=== PATIENT | female | born 1940 | race Caucasian/White ===

== ENCOUNTER → 2023-12-15 07:46 | Outpatient (REF) | payer MEDICARE, SELFPAY | LOC: WDC 07:46 | PROVIDERS: ATTENDING PHYSICIAN Internal Medicine | DX: Z12.31 Encounter for screening mammogram for malignant neoplasm of breast (principal); M81.0 Age-related osteoporosis without current pathological fracture | CPT/HCPCS: 77063; 77067; 77080 ==

== ENCOUNTER → 2023-12-16 08:04 | Outpatient (REF) | payer MEDICARE, SELFPAY | LOC: RAD 08:04 | PROVIDERS: ATTENDING PHYSICIAN Internal Medicine Gastroenterology; FAMILY PHYSICIAN Internal Medicine | DX: R14.0 Abdominal distension (gaseous) (principal) | CPT/HCPCS: 78264; A9541 ==

== ENCOUNTER 2024-06-04 19:46 | Emergency (ER) | payer MEDICARE, SELFPAY ==
[2024-06-04 19:49] VITALS: BP 172/90
[2024-06-04 20:32] VITALS: BP 201/92
[2024-06-04 20:44] VITALS: BP 177/73; BMI 19.4
[2024-06-04 20:47] LABS: % Basophils 0.7 % (0-2); % Eosinophils 4.3 % (0-6); % Immature Granulocytes 0.2 % (0-0.5); % Neutrophils 54.8 % (42.2-75.2); Absolute Eosinophils 0.2 10^3/uL (0-0.7); Absolute Monocytes 0.7 10^3/uL (0.1-0.6); Absolute Neutrophils 2.3 10^3/uL (1.4-6.5); Mean Corp Hgb Conc. 35.1 g/dL (33.0-37.0); Mean Corpuscular Hgb 29.1 pg (27.0-31.0); Mean Corpuscular Volume 82.8 fL (81.0-99.0); Mean Platelet Volume 9.1 fL (7.4-10.4); Nucleated Red Blood Cells % 0 %; Platelet Count 176 10^3/uL (130-400); Red Blood Cell Count 4.47 10^6/uL (4.20-5.40); Red Cell Dist. Width 12.8 % (11.5-14.5); White Blood Cell Count 4.2 10^3/uL (4.8-10.8)
--- NOTE | 2024-06-04 20:53 | ED.GENMED ---
History of Present Illness
General
Chief Complaint: Chest Pain
Source: patient
Exam Limitations: none
Time Seen by Provider: 06/04/24 20:27
History of Present Illness
History of Present Illness:
This is a 84 year old female that comes in with c/o chest discomfort. States that in October she went to see her PCP and she was put on medication for erosive gastritis. State that in November she was no better so she went to the GI specialist.
States that she was given Famotidine and she got worse as this caused Tenonitis. State that she has had a sick stomach ever since. States that the past 2 weeks she has a sore taste in her mouth and sore stomach. States that she has an appointment to
see the GI Specialist next week. Then 3-4 days ago she started with pain in the left upper chest. States that this only last seconds. States that this happened 1-2 times throughout the day and it did not matter if she was active or laying down.Today
she was laying down and she got left chest pain more on the inner breast and this happened 2 times. States that it was every 50-60 min and last seconds so she thought she better come in . Denies any fever, chills, SOB, abd pain, nausea, vomiting,
diarrhea, headache, dizziness, urinary burning.
Past History
Past History
ED Past Medical History: GERD (Gastritis), Hypercholesterolemia, Other (Migraines, sciatica, back pain, PE, Hep A, B and C, Lyme, Amniatic embolism, Erosive gastritis ) and Other (Hepatitis C from blood transfusion )
ED Past Surgical History: None, Orthopedic (Surgery for Fracture leg and elbow, ), Tonsilectomy and Other (Breast cyst removed)
Social History
Tobacco: Non-smoker
Alcohol: None
Personal:
Living: with family
Family History
Family History: Hypertension
Review of Systems
Review of Systems
All Other Systems: ROS reviewed and negative except as documented in HPI and ROS
Constitutional: Reports no symptoms; Denies fever or chills
EENT: Reports no symptoms
Respiratory: Denies cough or trouble breathing
Cardiac: Reports chest pain
ABD/GI: Reports no symptoms; Denies abdominal pain, nausea, vomiting or diarrhea
: Reports no symptoms; Denies dysuria, frequency or urgency
Musculoskeletal: Reports no symptoms
Skin: Reports no symptoms
Neurological: Reports no symptoms; Denies dizzy or headache
Psychiatric: Reports no symptoms
Phy Exam
General Physical Exam
General Presentation: no apparent distress
General age: appears stated age
General Skin: warm and dry
General Habitus: elderly
General Mental: alert
General Hydration: appears well hydrated
ENT Exam
ENT Exam: TM's normal, pharynx normal and neck supple
Eye Exam
Eye Exam: EOMI
Cardiovascular Exam
Cardiovascular Exam: regular rate/rhythm, no edema, no murmur and normal peripheral pulses
Pulmonary Exam
Pulmonary Exam: lungs clear, no respiratory distress, no rales, chest non tender, no crackles, no rhonchi, no wheezing and no cough
Gastrointestinal Exam
Gastrointestinal Exam: normal bowel sounds, non tender, soft, no organomegaly, no pulsatile mass and non distended
Musculoskeletal Exam
Musculoskeletal Exam: full ROM and no edema
Skin Exam
Skin Exam: normal color, warm/dry, no rash and no petechia
Psychiatric Exam
Psychiatric Exam: normal mood/affect
Scores
Heart Score for Chest Pain Patients
STEMI patient?: No
History: Slightly or Non-Suspicious
ECG: Normal
Age: >/= 65 years
Risk Factors: No Risk Factors
Troponin: </= Normal Limit
Heart Score for Chest Pain Patients: 2
Heart Score Risk: 2.5% MACE over next 6 weeks
Course
Orders/Labs/Results
Orders:
Orders
06/04/24 19:47
ECG [Electrocardiogram (*1)] Urgent
Reason for Study: Chest Pain
06/04/24 19:48
EKG- Treatment ONCE
06/04/24 20:38
Complete Blood Count/With Diff Urgent
Comprehensive Metabolic Panel Urgent
Troponin I Urgent
06/04/24 20:52
Pantoprazole [Protonix IV] 40 mg IV NOW STA
Sucralfate Suspension [Carafate Suspension] 1 gm PO NOW STA
CR Chest - 2 Views Urgent
Comment:
Reason For Exam: cHEST PAIN
06/04/24 21:42
EKG- Treatment ONCE
06/04/24 23:40
Electrocardiogram (*1) Urgent
Reason for Study: Chest Pain
Other Reason for Exam: Repeat with Troponin
06/04/24 23:51
Troponin I Urgent
06/05/24 00:32
D-Dimer Urgent
Abnormal Lab Results
06/04/24
20:38
WBC 4.2 L 10^3/uL
(4.8-10.8)
Absolute Lymphs (auto) 1.0 L 10^3/uL
(1.2-3.4)
Absolute Monos (auto) 0.7 H 10^3/uL
(0.1-0.6)
Monocytes % 17.0 H %
(1.7-9.3)
Carbon Dioxide 31 H mmol/L
(22-30)
AST 43 H U/L
(14-36)
06/04/24 20:38
06/04/24 20:38
WBC very slightly low. AST elevation. Troponin <0.012.
Second Troponin ,0.012, D-dimer o.44
Vital Signs
Initial and Last Documented VS:
Initial Vital Signs
Temp Pulse Resp BP Pulse Ox
98.2 F 85 16 172/90 99
06/04/24 19:49 06/04/24 19:49 06/04/24 19:49 06/04/24 19:49 06/04/24 19:49
Last Documented Vital Signs
Temp Pulse Resp BP Pulse Ox
98.3 F 59 6 163/71 97
06/04/24 23:54 06/05/24 01:15 06/05/24 01:15 06/05/24 01:00 06/05/24 01:15
MDM/Problems Addressed
Differential Diagnosis Includes:
coronary syndrome. GERD
MDM/Problems Addressed:
This is a 84 year old female that comes in with c/o chest pain. State that she had left upper chest discomfort 3-4 days ago and this only lasted seconds. Then today she was laying down and the pain was more on the left internal breast area. State
that this has happened about every 50-60min and last seconds.
Will get labs, chest x-ray.
Back into see patient. Explained that her both Troponin are normal and her D-dimer is negative. Chest x-ray is negative. Will place patient on the Cardiology hot line for further evaluation. Patient to return with increased or changing pain.
Chronic conditions affecting care:
erosive gastritis,
Acute Exacerbation and/or Progression of Chronic Illness:
Erosive gastritis
*Pulse Oximetry
Patient hypoxic: no
*EKG
Interpreted by ED Provider?: Yes
Heart Rate: 72
Rate: normal
Rhythm: sinus
[place]: left axis deviation
Interval: normal interval
QRS Pattern: normal QRS
Ischemia: T-wave inversion (aVR, V1, V2, with nonspecific ST changes in II, V4, V5, V6)
*Deputy Insurance Commissioner Interpretation
Rate: normal
Heart Rate: 80
*Critical Care Note
Total Time (30-74mins, 75-104mins- exclusive of procedures): Not Applicable
ED Attending Note
-
Portions of this chart may have been created with voice recognition software.� Occasional wrong word or��sound alike� substitutions may have occurred due to the inherent limitations of voice recognition software.
Discharge Plan
Departure
Patient Disposition: Home (Routine Discharge)
Date of Disposition: 06/05/24
Time of Disposition: 01:34
Patient with high blood pressure during this ER visit?: Yes
Condition: Good
Covid-19: Not Applicable
Discharge Problem:
Chest pain
Instructions: Chest Pain DCA Follow Up, BLOOD PRESSURE
Prescriptions:
No Action
calcium carbonate [Calcium 600] 600 MG tablet
2,400 mg PO DAILY
avxxwqpg-ukh-EP-lycopen-lutein [Centrum Silver] 1 EACH tablet
1 ea PO DAILY
diltiazem HCl 120 MG capsule,extended release 24hr
120 mg PO DAILY
Atorvastatin
5 mg PO DAILY
aspirin 81 MG tablet,delayed release (DR/EC)
81 mg PO DAILY
ibuprofen 400 MG tablet
400 mg PO Q6 PRN (Reason: pain) Qty: 14 0RF
methylprednisolone [Medrol (Magno)] 4 MG tablets,dose pack
4 tab PO . DIRECT Qty: 1 0RF
ciprofloxacin-hydrocortisone [Cipro HC] 10 ML drops,suspension
4 drops OT BID Qty: 1 0RF
acetaminophen-codeine 1 TABLET tablet
1 tab PO Q6HPRN PRN (Reason: pain ) Qty: 12 0RF
sulfamethoxazole-trimethoprim 1 TABLET tablet
1 tab PO BID Qty: 14 0RF
Referrals:
Ira Gee MD [Family Provider] -
Natalio Zaragoza MD [Active] - Follow up in 2-3 days
Activity Restrictions/Additional Instructions:
As discussed, your blood work shows that both Troponin are normal. Your D-dimer is negative and your chest x-ray is normal. You have been place on the cardiology hot line. This means that the next business day you will receive a call from the
Division [employer] office for further evaluation. IF YOU HAVE INCREASED OR CHANGING PAIN, SHORTNESS OF BREATH, OR YOU HAVE ANY OTHER CONCERNS PLEASE RETURN TO THE EMERGENCY ROOM.
Interventions
Interventions:
*Risk Screen - Suicide Last Done: 06/04/24 20:45
*General Assessment Last Done: 06/04/24 20:39
*Neglect/Abuse Screening Last Done: 06/04/24 20:45
ED- Fall Risk Assessment Last Done: 06/04/24 20:40
*ED COVID-19 Vaccine History Last Done: 06/04/24 20:45
ED- Cardiac Assessment Last Done: 06/04/24 23:55
Discharge Date and Time
Print Language: [place]
[2024-06-04 20:59] LABS: ALT (SGPT) 25 U/L (0-35); AST (SGOT) 43 U/L (14-36); Albumin 4.4 g/dl (3.5-5.0); Alkaline Phosphatase 67 U/L (38-126); Blood Urea Nitrogen 13 mg/dl (7-17); Calcium 9.5 mg/dl (8.4-10.2); Carbon Dioxide 31 mmol/L (22-30); Chloride 102 mmol/L (98-107); Estimated Creatinine Clearance 47 ml/min; Glucose 80 mg/dl (70-99); Potassium 3.9 mmol/L (3.5-5.1); Sodium 139 mmol/L (135-145); Total Bilirubin 0.5 mg/dl (0.2-1.3); Total Protein 6.8 g/dl (6.3-8.2); eGFR > 60.00
[2024-06-04 21:10] LABS: Troponin I < 0.012 ng/ml
[2024-06-04] MEDS: PROTONIX IV 40 MG IV (21:12)
[2024-06-04] MEDS: CARAFATE SUSPENSION 1 GM PO (21:13)
[2024-06-04 21:28] VITALS: BP 144/63
[2024-06-04 22:00] VITALS: BP 148/71
[2024-06-04 23:49] VITALS: BP 171/80
[2024-06-05] VITALS: BP 164/83
[2024-06-05 00:19] LABS: Troponin I < 0.012 ng/ml
[2024-06-05 01:00] VITALS: BP 163/71
[2024-06-05 01:29] LABS: D-Dimer 0.44 ug/mlFEU (0.00-0.50)
[2024-06-05 01:32] VITALS: BP 161/70
[2024-06-05 01:38] VITALS: BP 161/70
== END 2024-06-05 01:39 | disposition home or self-care (01) ==
LOC: EMR 19:46
PROVIDERS: Clinical Nurse Specialist Family Health; Emergency Medicine; EMERGENCY PHYSICIAN Emergency Medicine; FAMILY PHYSICIAN Internal Medicine
DX: R07.89 Other chest pain (principal); K21.9 Gastro-esophageal reflux disease without esophagitis; E78.00 Pure hypercholesterolemia, unspecified
CPT/HCPCS: 99283; 96374; 71046; 80053; 84484; 85025; 85379; 93005

== ENCOUNTER → 2025-01-10 10:58 | Outpatient (REF) | payer MEDICARE, SELFPAY | LOC: DHSLP 10:58 | PROVIDERS: ATTENDING PHYSICIAN Internal Medicine Critical Care Medicine; FAMILY PHYSICIAN Family Medicine | DX: G47.00 Insomnia, unspecified (principal); R06.83 Snoring | CPT/HCPCS: 95810 ==

== ENCOUNTER → 2025-01-16 08:17 | Outpatient (REF) | payer MEDICARE, SELFPAY | LOC: WDC 08:17 | PROVIDERS: ATTENDING PHYSICIAN Obstetrics & Gynecology; FAMILY PHYSICIAN Family Medicine | DX: Z12.31 Encounter for screening mammogram for malignant neoplasm of breast (principal) | CPT/HCPCS: 77063; 77067 ==

== ENCOUNTER → 2025-01-26 09:37 | Outpatient (REF) | payer MEDICARE, SELFPAY | LOC: WDC 09:37 | PROVIDERS: ATTENDING PHYSICIAN Obstetrics & Gynecology; FAMILY PHYSICIAN Family Medicine | DX: R92.8 Other abnormal and inconclusive findings on diagnostic imaging of breast (principal) | CPT/HCPCS: 76642 ==

== ENCOUNTER 2025-05-22 06:58 | Emergency (ER) | payer MEDICARE, SELFPAY ==
[2025-05-22 07:15] VITALS: BP 133/71
[2025-05-22 07:37] LABS: Hematocrit 38.5 % (37.0-47.0); Hemoglobin 13.1 g/dL (12.0-16.0); Mean Corp Hgb Conc. 34.0 g/dL (33.0-37.0); Mean Corpuscular Volume 84.4 fL (81.0-99.0); Nucleated Red Blood Cells % 0 %; Platelet Count 204 10^3/uL (130-400); Red Cell Dist. Width 13.0 % (11.5-14.5)
[2025-05-22 07:41] LABS: Urine Character Clear (Clear)
[2025-05-22 07:51] LABS: ALT (SGPT) 21 U/L (0-35); AST (SGOT) 39 U/L (14-36); Albumin 4.4 g/dl (3.5-5.0); Alkaline Phosphatase 57 U/L (38-126); Blood Urea Nitrogen 10 mg/dl (7-17); Calcium 9.4 mg/dl (8.4-10.2); Carbon Dioxide 28 mmol/L (22-30); Chloride 103 mmol/L (98-107); Glucose 96 mg/dl (70-99); Lipase 100 U/L (23-300); Potassium 4.0 mmol/L (3.5-5.1); Sodium 136 mmol/L (135-145); Total Protein 6.8 g/dl (6.3-8.2); eGFR > 60.00
--- NOTE | 2025-05-22 10:00 | EDRN ---
Dr. Ovalles in to see pt at this time.
--- NOTE | 2025-05-22 10:10 | ED.GENMED ---
History of Present Illness
General
Chief Complaint: Abdominal Pain
Time Seen by Provider: 05/22/25 09:46
History of Present Illness
History of Present Illness:
85-year-old female with history of hyperlipidemia presenting for concern of constipation. Patient reports that last bowel movement was yesterday morning. She does struggle with constipation and reports that she has been having increased pain when
trying to defecate and pass flatus. Notes pain particularly to her lower abdomen which radiates to her back. Denies fever. Denies any history of abdominal surgeries. She denies chest pain or difficulty breathing. Denies fever. She has not on
any stool softeners. She denies additional acute medical complaints
Past History
Past History
ED Past Medical History: GERD (Gastritis), Hypercholesterolemia, Other (Migraines, sciatica, back pain, PE, Hep A, B and C, Lyme, Amniatic embolism, Erosive gastritis ) and Other (Hepatitis C from blood transfusion )
ED Past Surgical History: None, Orthopedic (Surgery for Fracture leg and elbow, ), Tonsilectomy and Other (Breast cyst removed)
Social History
Tobacco: Non-smoker
Alcohol: None
Personal:
Living: with family
Family History
Family History: Hypertension
Phy Exam
Physical Exam
Physical Exam:
General: Well-appearing, no clinical signs of dehydration, nontoxic and in no acute distress
HEENT: protecting airway
Neck: appears supple
CV: Normal heart rate, regular rhythm
Resp: No accessory muscle use, no increased work of breathing, lungs clear to auscultation bilaterally
Abd: Soft and non-distended, mild tenderness to the left lower quadrant and suprapubic abdomen
Extremities: No deformities, no swelling
Neuro: alert, no focal neurologic deficit
: deferred
Rectal: deferred
Psych: Normal affect
Skin: Intact
Course
Orders/Labs/Results
Orders:
Orders
05/22/25 07:27
Complete Blood Count/With Diff Urgent
Comprehensive Metabolic Panel Urgent
Lipase Urgent
Urinalysis Reflex To Culture Urgent
Date Specimen was Collected: 05/22/25
Time Specimen was Collected: 07:18
05/22/25 10:05
CT Abd/pelvis W Iv Cont Urgent
Comment:
Reason For Exam: LLQ and suprapubic pain
Ketorolac [Toradol] 15 mg IV NOW STA
05/22/25 13:36
Amoxicillin 875 mg/Clav 125 mg [Augmentin 875 mg/125 mg] 1 tablet PO NOW STA
Abnormal Lab Results
05/22/25
07:27
Absolute Neuts (auto) 6.9 H 10^3/uL
(1.4-6.5)
Absolute Lymphs (auto) 0.7 L 10^3/uL
(1.2-3.4)
Absolute Monos (auto) 1.0 H 10^3/uL
(0.1-0.6)
Neutrophils % 78.3 H %
(42.2-75.2)
Lymphocytes % 7.7 L %
(20.5-51.1)
Monocytes % 11.3 H %
(1.7-9.3)
AST 39 H U/L
(14-36)
05/22/25 07:27
05/22/25 07:27
Vital Signs
Initial and Last Documented VS:
Initial Vital Signs
Temp Pulse Resp BP Pulse Ox
98.5 F 86 16 133/71 97
05/22/25 07:15 05/22/25 07:15 05/22/25 07:15 05/22/25 07:15 05/22/25 07:15
Last Documented Vital Signs
Temp Pulse Resp BP Pulse Ox
98.5 F 61 16 130/59 96
05/22/25 07:15 05/22/25 12:15 05/22/25 12:15 05/22/25 12:15 05/22/25 12:15
MDM/Problems Addressed
MDM/Problems Addressed:
85-year-old female with history of hyperlipidemia presenting for constipation and abdominal pain. Vital signs on arrival are normal.
On exam patient is resting comfortably in bed, no acute distress. On abdominal exam, mild tenderness in the lower abdomen without rebound or guarding. Suspect constipation as etiology of symptoms. Lower suspicion for obstructive pathology.
However, does have more prominent focal tenderness to the left lower quadrant. Diverticulitis is a consideration. Patient does note history of diverticulosis. Laboratory analysis obtained prior to my assessment, no acute abnormality. No
leukocytosis. Plan for CT abdomen and pelvis to rule out acute pathology.
13:30 -CT shows evidence of diverticulitis, consistent with exam. No complicating features. Patient would prefer to go home with antibiotics. Will start patient on Augmentin. Strict return precautions communicated to patient who verbalized
understanding
*Pulse Oximetry
SaO2: 97
Oxygen Mode of Delivery: Room air
Patient hypoxic: no
*Critical Care Note
Total Time (30-74mins, 75-104mins- exclusive of procedures): Not Applicable
ED Attending Note
-
Portions of this chart may have been created with voice recognition software.� Occasional wrong word or��sound alike� substitutions may have occurred due to the inherent limitations of voice recognition software.
Discharge Plan
Departure
Prescriptions:
No Action
calcium carbonate [Calcium 600] 600 MG tablet
2,400 mg PO DAILY
llzmumym-cgf-VD-lycopen-lutein [Centrum Silver] 1 EACH tablet
1 ea PO DAILY
diltiazem HCl 120 MG capsule,extended release 24hr
120 mg PO DAILY
Atorvastatin
5 mg PO DAILY
aspirin 81 MG tablet,delayed release (DR/EC)
81 mg PO DAILY
ibuprofen 400 MG tablet
400 mg PO Q6 PRN (Reason: pain) Qty: 14 0RF
methylprednisolone [Medrol (Magno)] 4 MG tablets,dose pack
4 tab PO . DIRECT Qty: 1 0RF
ciprofloxacin-hydrocortisone [Cipro HC] 10 ML drops,suspension
4 drops OT BID Qty: 1 0RF
acetaminophen-codeine 1 TABLET tablet
1 tab PO Q6HPRN PRN (Reason: pain ) Qty: 12 0RF
sulfamethoxazole-trimethoprim 1 TABLET tablet
1 tab PO BID Qty: 14 0RF
Referrals:
Ira Joshi MD [Family Provider, Family Practice]
Interventions
Interventions:
*Risk Screen - Suicide Last Done: 05/22/25 07:15
*General Assessment Last Done: 05/22/25 10:14
*Neglect/Abuse Screening Last Done: 05/22/25 07:15
*ED- Fall Risk Assessment Last Done: 05/22/25 10:14
*ED COVID-19 Vaccine History Last Done: 05/22/25 10:14
ET-Ilxemp-Nwtiyjqyua Assessment Last Done: 05/22/25 10:15
Discharge Date and Time
Print Language: [place] CITIZEN
--- NOTE | 2025-05-22 10:12 | EDRN ---
Pt arrives to ER for pain across lower abd and across lower back. Pain at this time is 10/10. Pain started 15:00 yesterday.Pt also having nausea, feeling cold. Last BM yesterday am or day before, reported as normal.
[2025-05-22 10:14] VITALS: BMI 18.4
[2025-05-22 10:15] VITALS: BP 165/70
[2025-05-22] MEDS: TORADOL 15 MG IV (10:23)
[2025-05-22 11:00] VITALS: BP 142/61
--- NOTE | 2025-05-22 11:43 | EDRN ---
Pt arrived to ED after vomiting coffee ground like emesis last night. Pt states she has R lower abd pain w/ spasms going across her back for past couple of weeks.
[2025-05-22 12:15] VITALS: BP 130/59
[2025-05-22 13:35] VITALS: BP 143/69
[2025-05-22] MEDS: AUGMENTIN 875 MG/125 MG 1 TABLET PO (13:47)
== END 2025-05-22 13:55 | disposition home or self-care (01) ==
LOC: EMR 06:58
PROVIDERS: Emergency Medicine; EMERGENCY PHYSICIAN Student in an Organized Health Care Education/Training Program; FAMILY PHYSICIAN Family Medicine
DX: K57.92 Diverticulitis of intestine, part unspecified, without perforation or abscess without bleeding (principal); E78.00 Pure hypercholesterolemia, unspecified; K59.00 Constipation, unspecified; K21.9 Gastro-esophageal reflux disease without esophagitis; Z82.49 Family history of ischemic heart disease and other diseases of the circulatory system; Z87.19 Personal history of other diseases of the digestive system
CPT/HCPCS: 99284; 74177; 80053; 81003; 83690; 85025; Q9967

== ENCOUNTER → 2025-07-17 14:07 | Outpatient (REF) | payer MEDICARE, SELFPAY | LOC: RAD 14:07 | PROVIDERS: ATTENDING PHYSICIAN Family Medicine | DX: J20.9 Acute bronchitis, unspecified (principal) | CPT/HCPCS: 71046 ==

== ENCOUNTER → 2025-07-30 13:59 | Outpatient (REF) | payer MEDICARE, SELFPAY | LOC: WDC 13:59 | PROVIDERS: ATTENDING PHYSICIAN Obstetrics & Gynecology; FAMILY PHYSICIAN Family Medicine | DX: R92.8 Other abnormal and inconclusive findings on diagnostic imaging of breast (principal) | CPT/HCPCS: 76642 ==

== ENCOUNTER 2025-09-24 10:55 | Emergency (ER) | payer MEDICARE, SELFPAY ==
[2025-09-24 10:58] VITALS: BP 139/71
[2025-09-24 12:20] VITALS: BMI 22.4
[2025-09-24 12:28] LABS: Hematocrit 40.1 % (37.0-47.0); Hemoglobin 13.5 g/dL (12.0-16.0); Mean Corp Hgb Conc. 33.7 g/dL (33.0-37.0); Mean Corpuscular Volume 84.6 fL (81.0-99.0); Nucleated Red Blood Cells % 0 %; Platelet Count 179 10^3/uL (130-400); Red Cell Dist. Width 13.2 % (11.5-14.5)
[2025-09-24 12:36] LABS: Urine Character Clear (Clear)
[2025-09-24 12:50] LABS: ALT (SGPT) 20 U/L (0-35); AST (SGOT) 37 U/L (14-36); Albumin 4.4 g/dl (3.5-5.0); Alkaline Phosphatase 61 U/L (38-126); Blood Urea Nitrogen 10 mg/dl (7-17); Calcium 9.3 mg/dl (8.4-10.2); Carbon Dioxide 29 mmol/L (22-30); Chloride 96 mmol/L (98-107); Estimated Creatinine Clearance 39 ml/min; Glucose 79 mg/dl (70-99); Lipase 137 U/L (23-300); Potassium 3.9 mmol/L (3.5-5.1); Sodium 131 mmol/L (135-145); Total Protein 6.9 g/dl (6.3-8.2); eGFR > 60.00
--- NOTE | 2025-09-24 13:24 | ED.GENMED ---
History of Present Illness
General
Chief Complaint: Abdominal Pain
Source: patient
Time Seen by Provider: 09/24/25 13:01
History of Present Illness
History of Present Illness:
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
Wednesday described to be waxing and waning in intensity, mainly periumbilical but overall generalized, nonradiating, no exacerbating or alleviating factors and without any other symptoms. Patient went to urgent care but did not have any testing did,
was recommended that if her symptoms worsen she might need to go to the ER for further imaging. Patient is without any fevers. She does note that for the last 24 hours she has been trying more of a liquid based diet.
Past History
Past History
ED Past Medical History: GERD (Gastritis), Hypercholesterolemia, Other (Migraines, sciatica, back pain, PE, Hep A, B and C, Lyme, Amniatic embolism, Erosive gastritis ) and Other (Hepatitis C from blood transfusion )
ED Past Surgical History: Orthopedic (Surgery for Fracture leg and elbow, ), Tonsilectomy and Other (Breast cyst removed)
Social History
Tobacco: Non-smoker
Alcohol: None
Drug: None
Personal:
Living: with family
Family History
Family History: Hypertension
Review of Systems
Review of Systems
All Other Systems: ROS reviewed and negative except as documented in HPI and ROS
Phy Exam
Physical Exam
Physical Exam:
GENERAL: Alert , in no apparent distress
EYE: clear conjunctiva b/l
HEAD: NCAT
ENT: o/p clr, mmm.
CARDIAC: Regular rate and rhythm .
LUNGS: Clear breath sounds bilaterally, no acute respiratory distress, no wheezes/rales/rhonchi
ABDOMEN: Soft, tenderness periumbilically and RLQ, no r/g, no cvat
NEUROLOGICAL: Alert and oriented
SKIN: Warm and dry, skin intact.
MUSCULOSKELETAL: well perfused.
PSYCH: Normal and appropriate interaction.
Scores
Heart Failure Risk
Heart Failure Risk Score: Not Applicable
Heart Score for Chest Pain Patients
STEMI patient?: Not applicable
Withdrawal Assessment of Alcohol
Withdrawal Assessment Completed?: Not applicable
Course
Orders/Labs/Results
Orders:
Orders
09/24/25 12:07
IV Insert/Care/Rem.- Treatment PRN
09/24/25 12:18
Complete Blood Count/With Diff Urgent
Comprehensive Metabolic Panel Urgent
Lipase Urgent
Urinalysis Reflex To Culture Urgent
Date Specimen was Collected: 09/24/25
Time Specimen was Collected: 12:07
09/24/25 13:23
CT Abd/pelvis W Iv Cont Urgent
Comment:
Reason For Exam: generalized abd pain
Abnormal Lab Results
09/24/25
12:18
WBC 4.7 L 10^3/uL
(4.8-10.8)
Absolute Lymphs (auto) 0.3 L 10^3/uL
(1.2-3.4)
Neutrophils % 76.1 H %
(42.2-75.2)
Lymphocytes % 6.4 L %
(20.5-51.1)
Monocytes % 13.7 H %
(1.7-9.3)
Sodium 131 L mmol/L
(135-145)
Chloride 96 L mmol/L
(98-107)
AST 37 H U/L
(14-36)
09/24/25 12:18
09/24/25 12:18
Vital Signs
Initial and Last Documented VS:
Initial Vital Signs
Temp Pulse Resp BP Pulse Ox
98.3 F 72 20 139/71 98
09/24/25 10:58 09/24/25 10:58 09/24/25 10:58 09/24/25 10:58 09/24/25 10:58
Last Documented Vital Signs
Temp Pulse Resp BP Pulse Ox
99.2 F 56 20 131/67 99
09/24/25 14:28 09/24/25 14:28 09/24/25 10:58 09/24/25 14:28 09/24/25 14:28
MDM/Problems Addressed
Differential Diagnosis Includes:
Appendicitis
Diverticulitis
Pancreatitis
Urinary tract infection
Colitis
Renal/ureteral colic
Cholecystitis
GERD/gastritis
MDM/Problems Addressed:
85-year-old female presenting to the ER for evaluation of generalized abdominal pain over the last 3 days, symptoms wax and wane in intensity. No exacerbating or alleviating factors. Patient overall well-appearing and in no acute distress.
Declines anything for symptoms at this time. Labs initiated on arrival show no leukocytosis, chemistry is largely unremarkable. Urine without sign of infection. CT ordered. Disposition pending
*Radiology
Radiology exam reviewed: radiology read reviewed
*Pulse Oximetry
SaO2: 98
Oxygen Mode of Delivery: Room air
Patient hypoxic: no
*Critical Care Note
Total Time (30-74mins, 75-104mins- exclusive of procedures): Not Applicable
Patient Management
Discussion with other providers: PCP
Escalation/DeEscalation of care consider admission/obs:
CT scan is consistent for colitis and likely proctitis. No evidence for acute appendicitis or other surgical complication. Patient's symptoms remain well-controlled. She feels comfortable going home on continued BRAT diet. I did notify the
patient's primary care provider via [employer] text who will help expedite a follow-up with the patient. Patient aware of return precautions to the ER.
ED Attending Note
-
Portions of this chart may have been created with voice recognition software.� Occasional wrong word or��sound alike� substitutions may have occurred due to the inherent limitations of voice recognition software.
Discharge Plan
Departure
Patient Disposition: Home (Routine Discharge)
Date of Disposition: 09/24/25
Time of Disposition: 14:58
Patient with high blood pressure during this ER visit?: No
Discharge Problem:
Abdominal pain, Colitis
Instructions: Colitis (DC)
Prescriptions:
No Action
calcium carbonate [Calcium 600] 600 MG tablet
2,400 mg PO DAILY
ooeepvwp-fxa-KP-lycopen-lutein [Centrum Silver] 1 EACH tablet
1 ea PO DAILY
diltiazem HCl 120 MG capsule,extended release 24hr
120 mg PO DAILY
Atorvastatin
5 mg PO DAILY
aspirin 81 MG tablet,delayed release (DR/EC)
81 mg PO DAILY
ibuprofen 400 MG tablet
400 mg PO Q6 PRN (Reason: pain) Qty: 14 0RF
methylprednisolone [Medrol (Magno)] 4 MG tablets,dose pack
4 tab PO . DIRECT Qty: 1 0RF
ciprofloxacin-hydrocortisone [Cipro HC] 10 ML drops,suspension
4 drops OT BID Qty: 1 0RF
acetaminophen-codeine 1 TABLET tablet
1 tab PO Q6HPRN PRN (Reason: pain ) Qty: 12 0RF
sulfamethoxazole-trimethoprim 1 TABLET tablet
1 tab PO BID Qty: 14 0RF
amoxicillin-pot clavulanate 875-125 mg tablet
1 tab PO BID 10 Days Qty: 20 0RF
Referrals:
Ira Joshi MD [Family Provider, Family Practice]
Interventions
Interventions:
*Risk Screen - Suicide Last Done: 09/24/25 10:58
*General Assessment Last Done: 09/24/25 10:58
*Neglect/Abuse Screening Last Done: 09/24/25 10:58
VF-Kyyiiq-Vmxenkyguw Assessment Last Done: 09/24/25 12:20
Discharge Date and Time
Print Language: [place]
[2025-09-24 14:28] VITALS: BP 131/67
[2025-09-24 15:16] VITALS: BP 138/65
== END 2025-09-24 15:17 | disposition home or self-care (01) ==
LOC: EMR 10:55
PROVIDERS: EMERGENCY PHYSICIAN Emergency Medicine; FAMILY PHYSICIAN Family Medicine
DX: R10.9 Unspecified abdominal pain (principal); K52.9 Noninfective gastroenteritis and colitis, unspecified; K21.9 Gastro-esophageal reflux disease without esophagitis; E78.00 Pure hypercholesterolemia, unspecified; Z82.49 Family history of ischemic heart disease and other diseases of the circulatory system; Z86.19 Personal history of other infectious and parasitic diseases; Z87.19 Personal history of other diseases of the digestive system
CPT/HCPCS: 99284; 74177; 80053; 81003; 83690; 85025; Q9967

== ENCOUNTER 2025-09-25 13:22 | Inpatient (IN) | payer MEDICARE, SELFPAY ==
[2025-09-25 08:20] VITALS: BP 149/68
--- NOTE | 2025-09-25 08:24 | ED.GENMED ---
History of Present Illness
<GÓMZE Rankin - Last Filed: 09/25/25 12:22>
General
Chief Complaint: Abdominal Pain
Source: patient
Exam Limitations: none
Time Seen by Provider: 09/25/25 08:24
Nursing documentation reviewed up to this point in time: agreed with
History of Present Illness
History of Present Illness:
85yr old female presents back to the ED today c/o of worsening abdominal pain. She was seen here yesterday had a ct scan which showed colitis and likely proctitis. She reports pain started on Wednesday, comes and goes. She was slightly nauseous on
Wednesday but has not had nausea since. She last moved her bowels on Wednesday and has been following a liquid diet since.
She reports pain worsened last night and this am.
She has not vomited. no diarrhea no fevers.
Past History
<GÓMEZ Rankin - Last Filed: 09/25/25 12:22>
Past History
ED Past Medical History: GERD (Gastritis), Hypercholesterolemia, Other (Migraines, sciatica, back pain, PE, Hep A, B and C, Lyme, Amniatic embolism, Erosive gastritis ) and Other (Hepatitis C from blood transfusion )
ED Past Surgical History: Orthopedic (Surgery for Fracture leg and elbow, ), Tonsilectomy and Other (Breast cyst removed)
Social History
Tobacco: Non-smoker
Alcohol: None
Drug: None
Personal:
Living: with family
Family History
Family History: Hypertension
Phy Exam
<GÓMEZ Rankin - Last Filed: 09/25/25 12:22>
General Physical Exam
General Presentation: no apparent distress
General age: appears stated age
General Skin: warm and dry
General Habitus: normal
General Mental: alert
General Hydration: appears well hydrated
Cardiovascular Exam
Cardiovascular Exam: regular rate/rhythm, no murmur and normal peripheral pulses
Pulmonary Exam
Pulmonary Exam: lungs clear and no respiratory distress
Gastrointestinal Exam
Gastrointestinal Exam: soft and other (tender throughout and rlq )
Neurological Exam
Neurological Exam: alert and oriented x3
Musculoskeletal Exam
Musculoskeletal Exam: full ROM
Skin Exam
Skin Exam: normal color and warm/dry
Psychiatric Exam
Psychiatric Exam: normal mood/affect
Course
<GÓMEZ Rankin - Last Filed: 09/25/25 12:22>
Orders/Labs/Results
Orders:
Orders
09/25/25 08:42
IV Insert/Care/Rem.- Treatment PRN
0.9% Sodium Chloride 500 ml [Nss] 500 ml IV BOLUS
09/25/25 08:59
CT Abd/pel W Iv And Oral Contr Urgent
Comment:
Reason For Exam: abd pain worse on the right
Complete Blood Count/With Diff Urgent
Comprehensive Metabolic Panel Urgent
Lipase Urgent
Iohexol [Omnipaque] See Protocol PO NOW STA
Abnormal Lab Results
09/25/25
08:59
WBC 3.8 L 10^3/uL
(4.8-10.8)
Absolute Lymphs (auto) 0.3 L 10^3/uL
(1.2-3.4)
Lymphocytes % 8.0 L %
(20.5-51.1)
Monocytes % 15.6 H %
(1.7-9.3)
Eosinophils % 6.1 H %
(0-6)
Sodium 129 L mmol/L
(135-145)
09/25/25 08:59
09/25/25 08:59
Vital Signs
Initial and Last Documented VS:
Initial Vital Signs
Temp Pulse Resp BP Pulse Ox
97.5 F 73 18 149/68 98
09/25/25 08:20 09/25/25 08:20 09/25/25 08:20 09/25/25 08:20 09/25/25 08:20
Last Documented Vital Signs
Temp Pulse Resp BP Pulse Ox
97.5 F 64 14 149/68 100
09/25/25 08:20 09/25/25 09:30 09/25/25 09:30 09/25/25 08:20 09/25/25 09:30
Neuropsychology Medical Consultant consulted with Physician
Neuropsychology Medical Consultant consulted with physician?: Yes
Name of Physician Consulted: lurdes
<Andry Teran MD - Last Filed: 09/25/25 09:02>
Orders/Labs/Results
Orders:
Orders
09/25/25 08:42
IV Insert/Care/Rem.- Treatment PRN
0.9% Sodium Chloride 500 ml [Nss] 500 ml IV BOLUS
09/25/25 08:59
CT Abd/pel W Iv And Oral Contr Urgent
Comment:
Reason For Exam: abd pain worse on the right
Complete Blood Count/With Diff Urgent
Comprehensive Metabolic Panel Urgent
Lipase Urgent
Iohexol [Omnipaque] See Protocol PO NOW STA
Abnormal Lab Results
09/25/25
08:59
WBC 3.8 L 10^3/uL
(4.8-10.8)
Absolute Lymphs (auto) 0.3 L 10^3/uL
(1.2-3.4)
Lymphocytes % 8.0 L %
(20.5-51.1)
Monocytes % 15.6 H %
(1.7-9.3)
Eosinophils % 6.1 H %
(0-6)
Sodium 129 L mmol/L
(135-145)
09/25/25 08:59
09/25/25 08:59
Vital Signs
Initial and Last Documented VS:
Initial Vital Signs
Temp Pulse Resp BP Pulse Ox
97.5 F 73 18 149/68 98
09/25/25 08:20 09/25/25 08:20 09/25/25 08:20 09/25/25 08:20 09/25/25 08:20
Last Documented Vital Signs
Temp Pulse Resp BP Pulse Ox
97.5 F 64 14 149/68 100
09/25/25 08:20 09/25/25 09:30 09/25/25 09:30 09/25/25 08:20 09/25/25 09:30
<GÓMEZ Rankin - Last Filed: 09/25/25 12:22>
MDM/Problems Addressed
Differential Diagnosis Includes:
not limited to: appendicitis
MDM/Problems Addressed:
As documented patient is an 85-year-old female that was here yesterday for abdominal pain however presents back to the ER with worsening pain. CAT scan was done yesterday however IV contrast only and on reexam patient is tender throughout worse in
the right lower quadrant as discussed with the physician oral and IV contrast repeated. CAT scan does show a mobile cecum and persistent wall thickening involving the distal ileum cecum and proximal ascending colon consistent to enterocolitis.
Persistent proctitis seen as well. Urinalysis was reviewed from yesterday which was negative I did not repeat this.
With persistent pain would recommend admission. Patient is afebrile, nml wbc. sodium is low at 129. Pt is intermittent.
<GÓMEZ Rankin - Last Filed: 09/25/25 12:22>
*Radiology
Radiology exam reviewed: radiology read reviewed
*Pulse Oximetry
SaO2: 98
Oxygen Mode of Delivery: Room air
Patient hypoxic: no
*Critical Care Note
Total Time (30-74mins, 75-104mins- exclusive of procedures): Not Applicable
ED Attending Note
<GÓMEZ Rankin - Last Filed: 09/25/25 12:22>
-
Portions of this chart may have been created with voice recognition software.� Occasional wrong word or��sound alike� substitutions may have occurred due to the inherent limitations of voice recognition software.
<Andry Teran MD - Last Filed: 09/25/25 09:02>
ED Attending Note
Patient seen and examined by attending physician: Yes
ED Attending Note:
I have seen and evaluated the patient with a upxf-eo-cyrn encounter. I have spoken to the advance practicer provider and involved in the medical history, the physical exam, medical decision making.
Evaluation and management service: agree unless noted differently below.
Results interpretation: agree unless noted differently below.
Focused HPI: 85-year-old female with history as noted presents to the ER for evaluation of abdominal pain. Patient was notably seen yesterday in the ER for abdominal pain and had CT which showed colitis but no other clear acute abnormalities. She
was discharged home. She says that after returning home her pain returned rather quickly and she was up all night with abdominal pain. She describes pain in the periumbilical region that radiates towards the right side as well as towards the low
back. She has not had any associated nausea or vomiting. She denies any diarrhea in fact has been mildly constipated. She denies any urinary symptoms. Denies fever or chills. She does have a history of diverticulitis. She denies prior
abdominal surgeries.
Physical exam: Awake and alert not in distress. Hypertensive but otherwise normal vitals. Her abdomen is soft, tender to palpation periumbilical and right lower quadrant. No peritoneal signs.
Medical Decision Makin-year-old female returns for second visit for continued significant abdominal. Yesterday had CT which showed questionable colitis but no other acute abnormalities. I question this diagnosis as patient has not had any
diarrhea and pain is more focal in the right lower quadrant during my assessment. Assessment yesterday was somewhat limited as she has low BMI and no oral contrast given�will repeat CT with oral contrast specifically to evaluate for appendicitis.
Repeat labs. Plan likely for admission with continued pain and second ER visit.
Discharge Plan
Departure
Patient Disposition: Admit
Date of Disposition: 09/25/25
Time of Disposition: 12:01
Admit to: Med/Surg
Presentation/result/management discussed w/ accepting MD/DO: Hospitalist
Patient with high blood pressure during this ER visit?: Yes
Condition: Fair
Covid-19: Not Applicable
Discharge Problem:
Abdominal pain, Acute proctitis, Acute hyponatremia, enterocolitis
Prescriptions:
No Action
calcium carbonate [Calcium 600] 600 MG tablet
2,400 mg PO DAILY
ggwwfbex-qje-TR-lycopen-lutein [Centrum Silver] 1 EACH tablet
1 ea PO DAILY
diltiazem HCl 120 MG capsule,extended release 24hr
120 mg PO DAILY
Atorvastatin
5 mg PO DAILY
aspirin 81 MG tablet,delayed release (DR/EC)
81 mg PO DAILY
ibuprofen 400 MG tablet
400 mg PO Q6 PRN (Reason: pain) Qty: 14 0RF
methylprednisolone [Medrol (Magno)] 4 MG tablets,dose pack
4 tab PO . DIRECT Qty: 1 0RF
ciprofloxacin-hydrocortisone [Cipro HC] 10 ML drops,suspension
4 drops OT BID Qty: 1 0RF
acetaminophen-codeine 1 TABLET tablet
1 tab PO Q6HPRN PRN (Reason: pain ) Qty: 12 0RF
sulfamethoxazole-trimethoprim 1 TABLET tablet
1 tab PO BID Qty: 14 0RF
amoxicillin-pot clavulanate 875-125 mg tablet
1 tab PO BID 10 Days Qty: 20 0RF
Referrals:
Ira Joshi MD [Family Provider, Family Practice]
Interventions
Interventions:
*Risk Screen - Suicide Last Done: 09/25/25 08:20
*General Assessment Last Done: 09/25/25 08:20
*Neglect/Abuse Screening Last Done: 09/25/25 08:20
*ED COVID-19 Vaccine History Last Done: 09/25/25 11:31
*ED Influenza Vaccine History Last Done: 09/25/25 11:31
ZW-Gfrxlc-Csbfgrgigc Assessment Last Done: 09/25/25 09:11
Discharge Date and Time
Print Language: TRINIDADIAN
[2025-09-25] MEDS: NSS 500 IV (09:01)
[2025-09-25] MEDS: OMNIPAQUE 50 ML PO (09:07)
[2025-09-25 09:30] LABS: Hematocrit 37.8 % (37.0-47.0); Hemoglobin 13.0 g/dL (12.0-16.0); Mean Corp Hgb Conc. 34.4 g/dL (33.0-37.0); Mean Corpuscular Volume 82.9 fL (81.0-99.0); Nucleated Red Blood Cells % 0 %; Platelet Count 169 10^3/uL (130-400); Red Cell Dist. Width 13.1 % (11.5-14.5)
[2025-09-25 09:46] LABS: ALT (SGPT) 19 U/L (0-35); AST (SGOT) 36 U/L (14-36); Albumin 4.2 g/dl (3.5-5.0); Alkaline Phosphatase 60 U/L (38-126); Blood Urea Nitrogen 9 mg/dl (7-17); Calcium 9.3 mg/dl (8.4-10.2); Carbon Dioxide 27 mmol/L (22-30); Chloride 98 mmol/L (98-107); Glucose 83 mg/dl (70-99); Lipase 148 U/L (23-300); Potassium 3.7 mmol/L (3.5-5.1); Sodium 129 mmol/L (135-145); Total Protein 6.7 g/dl (6.3-8.2); eGFR > 60.00
--- NOTE | 2025-09-25 12:04 | W.PN.UPDATE ---
Update Note
Progress Note Update
This note serves as an addendum to the H&P by tunneling machine operator SB�
Grace Durga
HPI
85F Non-smoker presents back to the ER today for worsening abdominal pain since Wednesday and on and off
- was evaluated at ER yesterday: CT showed colitis and likely proctitis. and started on PO augnmentin
- slightly nauseous on Wednesday but has not had nausea since.
- last moved her bowels on Wednesday and has been following a liquid diet since.
- worsening pain worsened last night and this am.
- Not vomited
- No o diarrhea
- no fevers
Of note; she is taking PURE ( Mg Citrate ) on line Medication
ER Rx;
NS 500 ml
PHX:
GERD (Gastritis), Hypercholesterolemia, Other (Migraines, sciatica, back pain, PE, Hep A, B and C, Lyme, Amniatic embolism, Erosive gastritis ) and Other (Hepatitis C from blood transfusion )
Surgery for Fracture leg and elbow, ), Tonsillectomy and Other (Breast cyst removed)
Relevant VS
Temp Pulse Resp BP Pulse Ox
97.5 F 64 14 149/68 100
09/25/25 08:20 09/25/25 09:30 09/25/25 09:30 09/25/25 08:20 09/25/25 09:30
PE
Gen: Not toxi. Thin
HEENT: anicteric , chronic facial rash on Lt face attributed to remote HX pregmancy ralted
Neck: supple
Lungs: CTA
Cor: mildly eleavted SBP, RRR S1 S2
Abdomen:�teneder to central abdomen. NG NRT. Not distended
DIETETIC TECH: Alert
MS: No edema
Psych: Nl mood and affect
Relevant Data
09/24/25 09/25/25
12:18 08:59
WBC 4.7 L 3.8 L
Hgb 13.5 13.0
Neutrophils % 76.1 H 69.5
Lymphocytes % 6.4 L 8.0 L
09/24/25 09/25/25
12:18 08:59
Sodium 131 L 129 L
Creatinine 0.7 0.7
eGFR > 60.00 > 60.00
Glucose 83
Total Bilirubin 0.8
AST 36
ALT 19
Alkaline Phosphatase 60
[address] AP W Iv And Oral Contr
The cecum appears located within the right upper quadrant which is likely secondary to a mobile cecum.
There is persistent wall thickening involving the distal ileum, cecum and proximal ascending colon which is likely secondary to enterocolitis.
There is a mildly prominent loops of small bowel which may be secondary to delayed transit.
The appendix extends adjacent to the medial right hepatic lobe and appears nondistended.
Mild wall thickening along the distal esophagus suggestive of esophagitis.
Persistent apparent mild wall thickening within the rectum suggestive of persistent mild proctitis.
NO PRIOR hospitalist admission:
ASSESSMENT & PLAN
Acute Enterocolitis + on PO Augmentin since 09/24/25
HX Diverticulosis & diverticulitis
+ Nausea but no V/D
- Stool Cx
- Faecal protectin
- Full liquid - ADAT
- IV NS
- Empiric Zosyn
- Avoid PPI due to risk for C Diff
- stop PURE ( Mg Citrate ) on line OTC Medication - not aware of Citrate in it
- Routine GI consult
Known HX: Pending Rx reconciliation
HX Erosive gastritis
GERD
HX PE
Hypercholesterolemia
HX Migraines
HX sciatica, back pain
HX Lyme
Hepatitis C from blood transfusion
DVT Px: SCD
Code: Full
IP MS
--- NOTE | 2025-09-25 12:25 | HPS.HSE ---
Family Physician
-
Family Physician: Ira Joshi MD
Chief Complaint
-
Mid umbilical abdominal pain
History of Present Illness
85-year-old female complaining of abdominal pain that started on Wednesday 4 days ago that has been off and on with some slight nausea. She does report last bowel movement was on Wednesday 2 days ago. She has been following a liquid diet. She was seen
in the ER yesterday with CT showing diverticulitis. She was placed on oral Augmentin as she preferred to go home at that time. She reports she started magnesium unknown type capsule she has been taking 1 capsule twice daily for the past 6 to 8
weeks however over the past 10 days she increased the magnesium to 1 capsule 3 times a day. She is unsure if it is magnesium citrate, glycan 8 or oxide. She reports she was taking this due to feeling constipated. She said her bowel movements vary
every 1 to 2 days. She noticed a slight bo color on Wednesday or Wednesday. She denies vomiting, fever, chills, chest pain, palpitations, cough, shortness of breath, diarrhea, urinary symptoms.
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
age 32, hepatitis A
Medical History
Past Medical History
Past Medical History: Reports Other
Additional Past Medical History:
diverticulosis/diverticulitis last bout May 2025
erosive gastritis
GERD
HLD
migraines
sciatica
chronic back pain,
PE, amniotic embolism
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
hepatitis A
Past Surgical History: Reports Other
Additional Past Surgical History:
Right breast cyst removed
Fracture of leg and elbow repair
Tonsillectomy
Social History
Tobacco: Non-smoker
Alcohol: None
Drug: None
Personal:
Living: With Family ()
Employment: Retired
Family History
Family History: Other (History of appendicitis in her family)
Allergies / Home Medications
Allergies reflects when Allergies were last updated in [facility].
Home Medications with original date entered in [facility]
Allergy/Medication List:
Allergies
Allergy/AdvReac Type Severity Reaction Status Date / Time
doxycycline Allergy Unknown Verified 09/25/25 08:19
hydrocodone bitartrate (From Allergy Unknown Verified 09/25/25 08:19
Vicodin)
oxycodone HCl (From Percocet) Allergy Unknown Verified 09/25/25 08:19
Home Medications
calcium carbonate (Calcium 600) 2,400 mg PO DAILY Supplement 04/12/12
atorvastatin 10 mg tablet (Lipitor) 5 mg PO DAILY High Cholesterol 04/02/19
diltiazem HCl 120 mg capsule,extended release 24 hr 120 mg PO DAILY Heart Disease/Condition 04/02/19
[place] Tail Mushroom 1 cap PO DAILY Supplement 09/25/25
amoxicillin 875 mg-potassium clavulanate 125 mg tablet 1 tab PO BID Infection 09/25/25
eszopiclone 2 mg tablet (Lunesta) 1 mg PO HS Sleep 09/25/25
levothyroxine 25 mcg tablet (Synthroid) 25 mcg PO DAILY Thyroid 09/25/25
magnesium oxide 200 mg PO TID Supplement 09/25/25
therapeutic multivitamin 1 tab PO DAILY Supplement 09/25/25
Review of Systems
-
History Source: Patient
A 12 point ROS was completed and negative except as noted: Yes
Constitutional: Denies Fever, Fatigue or Chills
EENT: Denies Sore Throat or Runny Nose
Respiratory: Denies Cough or Trouble Breathing
Cardiac: Denies Chest Pain, Diaphoresis, Palpitations or Syncope
Abdomen/GI: Reports Abdominal Pain (Umbilical), Nausea and Constipated (Reported last bowel movement 2 days ago); Denies Vomiting, Diarrhea, Bloody Stools or Black Stools
: Denies Dysuria, Frequency, Flank Pain, Incontinence or Difficulty Voiding
Musculoskeletal: Denies Joint Pain or Edema
Skin: Reports Rash (Chronic scattered rash arms face); Denies Itching
Neurological: Denies Dizzy, Headache or Weakness
Endocrine: Reports No Symptoms
Hematologic/Lymphatic: Reports No Symptoms
Psych: Reports Calm
Physical Exam
Vital Signs
Vital Signs
Temp Pulse Resp BP Pulse Ox
97.5 F 64 14 149/68 100
09/25/25 08:20 09/25/25 09:30 09/25/25 09:30 09/25/25 08:20 09/25/25 09:30
Physical Exam
General: Comfortable and Conversant; No Fever or Chills
HEENT: NormoCephalic, Anicteric, PERRLA, [place] Conjunctivae, No Ptosis and Other (Dry oral mucosa)
Respiratory: Clear; No Wheezes, Rales or Rhonchi
Cardiac: S1/S2 and Regular Rhythm; No Murmur, Rub, Gallop or Peripheral Edema
GI: Soft, Non Distended, Normal Bowel Sounds, Tender (Umbilical) and No Hepatosplenomegaly
Genito-urinary: Deferred by me
Musculoskeletal: No Clubbing, No Cyanosis and No Edema
Skin: Warm; No Rash
Neuro: AO x 3, No Motor Deficits, Nonfocal/grossly intact, Cranial Nerves Intact and No Sensory Deficits; No Slurred Speech, Facial Droop, Tremors or Sedated
Psych: Calm
Laboratory Results
-
09/25/25 08:59
09/25/25 08:59
Laboratory Results
Total Bilirubin 0.8 mg/dl (0.2-1.3) 09/25/25 08:59
AST 36 U/L (14-36) 09/25/25 08:59
ALT 19 U/L (0-35) 09/25/25 08:59
Alkaline Phosphatase 60 U/L (38-126) 09/25/25 08:59
Lipase 148 U/L (23-300) 09/25/25 08:59
Data Reviewed
-
CT Scan: Report Reviewed by me
Lab Data: Labs Reviewed by me
Impression/Plan
-
Impression/plan:
Admit to MedSurg
#Acute enterocolitis
Reported history of constipation
History of diverticulosis/diverticulitis last bout May 2025
check fecal calprotectin
- Stool cultures
-Full liquid diet advance as tolerated
- IV NSS
- IV Zosyn
- Consult GI
-Patient advised to stop magnesium capsule that she is taking OTC and to avoid magnesium citrate
- Follow CBC, CMP
CT abdomen pelvis:The cecum appears located within the right upper quadrant which is likely secondary to a mobile cecum.
There is persistent wall thickening involving the distal ileum, cecum and proximal ascending colon which is likely secondary to enterocolitis.
There is a mildly prominent loops of small bowel which may be secondary to delayed transit.
The appendix extends adjacent to the medial right hepatic lobe and appears nondistended.
Mild wall thickening along the distal esophagus suggestive of esophagitis.
Persistent apparent mild wall thickening within the rectum suggestive of persistent mild proctitis.
#Mild hyponatremia hypovolemic
NA 129
-IV NSS
-Follow BMP
#HTN
-Continue diltiazem 120 mg daily
#Erosive gastritis
#GERD
-Continue calcium carbonate 24 mg daily
#HLD
Continue Lipitor 5 mg daily
#Hypothyroidism
Continue Synthroid 25 mcg p.o. daily
#Insomnia
Continue Lunesta 1 mg at bedtime
Other PMH:
Migraines�no current headache
Sciatica
chronic back pain
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
hepatitis A
DVT prophylaxis
Subcu Lovenox
Full code
--- NOTE | 2025-09-25 13:50 | CON.GI ---
Addendum entered and electronically signed by Nighat Gregorio Do, MD 09/25/25 16:38:
I saw and evaluated the patient. I reviewed the resident�s note and agree with findings and plan as documented in the resident�s note.
Kaylyn is an 85yo W lives independently with h/o migraines, GERD and chronic constipation who is admitted for abd pain and worsening constipation. She has this issue chronically many years but does not use bowel regimen on the regular. Last Cscope
was 2021 in [place] where she lived in the past. Abd pain improves with defecation. She was in ER over weekend and again today. Vitals stable, thin NTTP, hypactive BS. Labs reviewed
Recommendation
- Acute on chronic constipation
- GERD
- Migraines
- Abnormal CT scan
- Hyperlipidemia
- H/o diverticulitis in 05/2025
Recommendations
- Mag citrate 10oz cleanse then miralax daily starting tomorrow
- C/w PPI
- Serial Abd exam
- She is UTD with Cscope 2021
- CLD anticipate advancement tomorrow after bowel cleanse
Will follow with you
Original Note:
Consultation
-
Date/Time Consultation Requested: 12:53 09/25/25
Date/Time Consultation Performed: 1:00 09/25/25
Requesting Provider: Grace Calixto
Performing Provider: Nighat Cook
Reason for Consultation: acute enterocolitis
Medical History
Chief Complaint / HPI
Chief Complaint: abdominal pain
History of Present Illness:
85yoF PMH diverticulosis, erosive gastritis, GERD, HLD, migraine, PE, hypothyroidism presenting with abdominal pain since Wednesday.
Pt reports commencement of abdominal pain Wednesday with intermittent stabbing feelings that last up to an hour accompanied with what she describes as back pain. She initially presented to urgent care, concerned she was having a bout of diverticulitis
similar to what she had this past summer. At the time, her pain was in her RUQ. Urgent care provided augmentin and urged her to get further work up with concern of biliary etiology due to the location. Pt also reports having 1 bout of light, abilio
colored stool Wednesday that self resolved and became brown by Wednesday. She reports subsiding pain until yesterday that prompted her to present to the ED where they diagnosed her with colitis. She opted to go home and manage conservatively; however,
her pain persisted today so she represented. Denies reflux pain but reports increased belching. Denies blood or dark stools.
Pt reports hx of constipation she was treating with a form of Magnesium she reports was effective for the last 6-8wks. Over the last 10 days, she reports worsening of constipation, prompting her to increase the dose of magnesium from BID to TID with
efficacy. Last BM Wednesday. Pt denies nause or vomiting except for 1 short bout of nausea that self resolved on Wednesday. She explained that her pain was previously on her right side, now in the middle with radiation bilaterally.
Pt denies recent weight loss or fevers. She reports feeling cold since the pain has started but no airam chills or sweats.
Pt reports long episodes of 'sick stomach' that she describes as having no appetite and accompanied bloating since 2020 that have currently resolved.
Past Medical History
Past Medical History: HTN, Hypercholesterolemia, Hypothyroidism and Other (erosive gastritis, GERD, migraines, diverticulosis)
Past Surgical History: None
Social History
Tobacco: Non-Smoker
Alcohol: None
Drug: None
Personal:
Living: With Family
Employment: Retired (teacher)
Allergies / Home Medications
Allergy/AdvReac Type Severity Reaction Status Date / Time
doxycycline Allergy Unknown Verified 09/25/25 08:19
hydrocodone bitartrate (From Allergy Unknown Verified 09/25/25 08:19
Vicodin)
oxycodone HCl (From Percocet) Allergy Unknown Verified 09/25/25 08:19
�Medication �Instructions �Recorded
calcium carbonate (Calcium 600) 2,400 mg PO DAILY Supplement 04/12/12
atorvastatin 10 mg tablet (Lipitor) 5 mg PO DAILY High Cholesterol 04/02/19
diltiazem HCl 120 mg 120 mg PO DAILY Heart 04/02/19
capsule,extended release 24 hr Disease/Condition
[place] Tail Mushroom 1 cap PO DAILY Supplement 09/25/25
amoxicillin 875 mg-potassium 1 tab PO BID Infection 09/25/25
clavulanate 125 mg tablet
eszopiclone 2 mg tablet (Lunesta) 1 mg PO HS Sleep 09/25/25
levothyroxine 25 mcg tablet 25 mcg PO DAILY Thyroid 09/25/25
(Synthroid)
magnesium oxide 200 mg PO TID Supplement 09/25/25
therapeutic multivitamin 1 tab PO DAILY Supplement 09/25/25
Review of Systems
-
History Source: Patient
Constitutional: Reports No Symptoms
EENT: Reports No Symptoms
Respiratory: Reports No Symptoms
Cardiac: Reports No Symptoms
Abdomen/GI: Reports Abdominal Pain and Constipated; Denies Diarrhea, Bloody Stools or Black Stools
: Reports No Symptoms
Musculoskeletal: Reports No Symptoms and Other (leg cramps before, resolved)
Skin: Reports No Symptoms
Neurological: Reports No Symptoms
Endocrine: Reports Temperature Intolerance (cold)
Hematologic/Lymphatic: Reports No Symptoms
Vital Signs
Temp Pulse Resp BP Pulse Ox
97.5 F 64 14 149/68 100
09/25/25 08:20 09/25/25 09:30 09/25/25 09:30 09/25/25 08:20 09/25/25 09:30
Physical Exam
Exam
General: No Apparent Distress and Comfortable
HEENT: Normocephalic, Anicteric and Moist Mucous Membranes
Respiratory: Non Labored Respirations
Cardiac: Regular Rhythm
GI: Soft, Non Distended and Tender (mid epigastrum )
Musculoskeletal: No Edema
Skin: Warm and Dry
Neuro: AO x 3 and Nonfocal/Grossly Intact
Psych: Calm
Results
WBC 3.8 10^3/uL (4.8-10.8) L 09/25/25 08:59
Hgb 13.0 g/dL (12.0-16.0) 09/25/25 08:59
Hct 37.8 % (37.0-47.0) 09/25/25 08:59
MCV 82.9 fL (81.0-99.0) 09/25/25 08:59
Plt Count 169 10^3/uL (130-400) 09/25/25 08:59
Absolute Neuts (auto) 2.6 10^3/uL (1.4-6.5) 09/25/25 08:59
Sodium 129 mmol/L (135-145) L 09/25/25 08:59
Potassium 3.7 mmol/L (3.5-5.1) 09/25/25 08:59
Chloride 98 mmol/L (98-107) 09/25/25 08:59
Carbon Dioxide 27 mmol/L (22-30) 09/25/25 08:59
BUN 9 mg/dl (7-17) 09/25/25 08:59
Creatinine 0.7 mg/dL (0.6-1.0) 09/25/25 08:59
Calcium 9.3 mg/dl (8.4-10.2) 09/25/25 08:59
Total Bilirubin 0.8 mg/dl (0.2-1.3) 09/25/25 08:59
AST 36 U/L (14-36) 09/25/25 08:59
ALT 19 U/L (0-35) 09/25/25 08:59
Alkaline Phosphatase 60 U/L (38-126) 09/25/25 08:59
Lipase 148 U/L (23-300) 09/25/25 08:59
Diagnostic Image Results:
CT 09/24/25
IMPRESSION:
1. Limited examination of the bowel as above. Allowing for this, there is apparent wall thickening of the proximal colon which is suspicious for acute colitis. Small volume of free fluid within the abdomen and pelvis. No pneumoperitoneum. No
obstruction.
2. Concentric wall thickening of the distal rectum consistent with some form of proctitis.
3. Concentric wall thickening at the gastroesophageal junction suggesting inflammatory change at this level. This could be further evaluated with endoscopy.
09/25/25
IMPRESSION:
The cecum appears located within the right upper quadrant which is likely secondary to a mobile cecum. There is persistent wall thickening involving the distal ileum, cecum and proximal ascending colon which is likely secondary to enterocolitis.
There is a mildly prominent loops of small bowel which may be secondary to delayed transit.
The appendix extends adjacent to the medial right hepatic lobe and appears nondistended.
Mild wall thickening along the distal esophagus suggestive of esophagitis.
Persistent apparent mild wall thickening within the rectum suggestive of persistent mild proctitis.
Last Ct 05/22/25
IMPRESSION: CT findings compatible with diverticulitis involving the sigmoid colon. There is significant inflammatory stranding of the adjacent fat and a small to moderate amount of reactive free fluid within the pelvis.
No evidence for abscess. No evidence for free intraperitoneal air.
Small focus of calcification in the proximal right coronary artery. Please correlate with symptoms of and risk factors for coronary artery disease, with further workup as clinically appropriate.
Prior GI Procedures:
EGD:
Colonoscopy:
02/17/2022
- erosive gastritis
- diverticulosis in sigmoid colon
Assessment / Plan
-
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
enterocolitis.
AFVSS. Hemodynamically stable with no signs of GI bleed. LFTs WNL. Pt is experiencing intermittent abdominal pain in the setting of constipation. She has recent EGD and colonoscopy 2021 that was positive for nonbleeding erosive gastritis. Pt had
bout of diverticulitis this past May treated with course augmentin and bowel rest. Denies fevers, chills, nausea, vomiting. 1 episode of abilio colored stools. Last BM was brown Wednesday. Pt takes magnesium tablets to help with constipation. Unlikely
biliary origin due to normal LFTs, bilirubin and no evidence of stones on CT.
Bowel inflammation may be due to stool burden. Plan for bowel rest on clears. Consider increasing bowel regimen.
PENDING ATTENDING RECOMMENDATIONS
-
-
Thank you for consultation and allowing me to participate in the patient's care. Please call the coupon collection clerk GI physician during the after hours with any questions or concerns.
--- NOTE | 2025-09-25 14:00 | CM ---
Chart reviewed and spoke with Kaylyn at ED bedside
Lives with in [facility] [address] [place]
PLOF independent with ADLs, ambulation. Driving
Does power walk for 40 years and weight lifting
no DME
cannot drive but has a friend who can drive her
2 kids in [facility] and 1 son in [place]
PCP Dr. Ira Joshi
Pharmacy [facility]
no hx of VN nor SNF
DCP is to go home
Friend can drive her home
CM will continue to follow up for any dcp needs
[2025-09-25 14:03] VITALS: BP 139/75
[2025-09-25] MEDS: NSS 1000 IV (14:04)
[2025-09-25] MEDS: ZOSYN 50 IV ×2 (14:08→19:50)
[2025-09-25 14:43] VITALS: BP 127/62; BMI 17.5
[2025-09-25 15:14] VITALS: BP 126/61; PULSE 57; O2SAT 96
[2025-09-25 15:26] VITALS: BP 126/61
--- NOTE | 2025-09-25 15:45 | PTCARENOTE ---
Pt transferred from ED. Pt ambulated into room with assistance. Pt oriented to unit, VSS, call avelar within reach, bed alarm applied. Will continue with current plan.
[2025-09-25] MEDS: MORPHINE SULFATE 2 MG IV (16:13)
[2025-09-25] MEDS: ZOFRAN 4 MG IV (16:14)
[2025-09-25] MEDS: CITROMA 300 ML PO (17:01)
[2025-09-25] MEDS: LOVENOX 30 MG SC (17:01)
[2025-09-25 17:48] LABS: TSH 4.61 uIU/ml (0.47-4.68)
[2025-09-25] MEDS: AMBIEN 5 MG PO (23:11)
[2025-09-25 23:14] VITALS: BP 162/64
[2025-09-26] MEDS: ZOSYN 50 IV ×2 (01:09→08:00)
[2025-09-26] MEDS: SYNTHROID 25 MCG PO (05:31)
[2025-09-26 07:00] VITALS: BP 138/66
[2025-09-26] MEDS: OSCAL CAL 500 2000 MG PO (08:00)
[2025-09-26] MEDS: LIPITOR 5 MG PO (08:02)
[2025-09-26] MEDS: CARDIZEM CD 120 MG PO (08:02)
[2025-09-26 08:06] LABS: Hematocrit 38.7 % (37.0-47.0); Hemoglobin 13.1 g/dL (12.0-16.0); Mean Corp Hgb Conc. 33.9 g/dL (33.0-37.0); Mean Corpuscular Volume 81.0 fL (81.0-99.0); Nucleated Red Blood Cells % 0 %; Platelet Count 175 10^3/uL (130-400); Red Cell Dist. Width 13.3 % (11.5-14.5)
[2025-09-26 08:42] LABS: ALT (SGPT) 18 U/L (0-35); AST (SGOT) 36 U/L (14-36); Albumin 4.1 g/dl (3.5-5.0); Alkaline Phosphatase 56 U/L (38-126); Blood Urea Nitrogen 10 mg/dl (7-17); Calcium 9.3 mg/dl (8.4-10.2); Carbon Dioxide 24 mmol/L (22-30); Chloride 103 mmol/L (98-107); Estimated Creatinine Clearance 36 ml/min; Glucose 72 mg/dl (70-99); Potassium 4.0 mmol/L (3.5-5.1); Sodium 134 mmol/L (135-145); Total Protein 6.5 g/dl (6.3-8.2); eGFR > 60.00
--- NOTE | 2025-09-26 09:15 | W.PN.UPDATE ---
Addendum entered and electronically signed by Doc Sharma MD 09/27/25 12:29:
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
Cachexia
Original Note:
Update Note
Progress Note Update
I saw and evaluated the patient. I reviewed the resident�s note and agree with findings and plan as documented in the resident�s note.
Patient states abdominal pain has significantly improved.
Gen: NAD, AAOx3.
Eyes: EOMI, PERRLA, no scleral icterus.
Neck: supple.
CV: RRR, +S1/S2, no m/r/g.
Resp: CTAB, no rales, wheezes, or rhonchi.
Abd: +BS, soft, NT, ND
Skin: No rashes.
Neuro: CN 2-12 intact, non-focal.
Psych: Normal mood and affect.
CT A/P: The cecum appears located within the right upper quadrant which is likely secondary to a mobile cecum. There is persistent wall thickening involving the distal ileum, cecum and proximal ascending colon which is likely secondary to
enterocolitis. There is a mildly prominent loops of small bowel which may be secondary to delayed transit. The appendix extends adjacent to the medial right hepatic lobe and appears nondistended. Mild wall thickening along the distal esophagus
suggestive of esophagitis. Persistent apparent mild wall thickening within the rectum suggestive of persistent mild proctitis.
Acute enterocolitis:
-imaging above
-Has been on Zosyn, can discharge on Augmentin
-ADAT
-GI following, recs Mg Citrate (received 09/25) followed by Miralax daily
Other problems:
Hyponatremia, improved
Essential HTN: Cont cardizem
GERD/Erosive gastritis: cont calcium carbonate, start PPI
HLD: cont statin
Hypothyroidism: cont Levoxyl
Medically cleared for discharge. Unexpected rapid recovery.
Total time spent on d/c = 31 min. This included today's physical exam, progress note, review of laboratory and diagnostic data, preparation of discharge documents and prescriptions, and discussions about the pt's hospital course and discharge plan
with the patient and other certified court/medical interpreter involved in the patient's care.
--- NOTE | 2025-09-26 10:07 | W.PN.GI.CBS2 ---
Addendum entered and electronically signed by Nighat Gregorio Do, MD 09/26/25 11:30:
I saw and evaluated the patient. I reviewed the resident�s note and agree with findings and plan as documented in the resident�s note.
Kaylyn's abd pain completely resolved after mag citrate cleanse. Denies nausea/vomiting. Tolerating liquids. Vitals stable NTTP
Recommendations
- Resume miralax daily not PRN basis
- Adv to low residue diet
- Ok from GI perspective for hosp d/c today she has FU with me in GI office 10/05 already
Will sign off please call for ?
Original Note:
Today's Communication / Plan
-
PENDING ATTENDING RECOMMENDATIONS
Advance diet as tolerated
continue daily miralax
Assessment / Plan
-
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
enterocolitis.
AFVSS. Hemodynamically stable with no signs of GI bleed. LFTs WNL. Pt is experiencing intermittent abdominal pain in the setting of constipation. She has recent EGD and colonoscopy 2021 that was positive for nonbleeding erosive gastritis. Pt had
bout of diverticulitis this past May treated with course augmentin and bowel rest. Denies fevers, chills, nausea, vomiting. 1 episode of abilio colored stools. Last BM was brown Wednesday. Pt takes magnesium tablets to help with constipation. Unlikely
biliary origin due to normal LFTs, bilirubin and no evidence of stones on CT.
Bowel inflammation may be due to stool burden. Plan for bowel rest on clears. Increasing bowel regimen.
Today, pt reports resolved symptoms after tolerating the Mg citrate well with multiple BM overnight. Due to repeated defecation overnight, she reports hemorrhoidal pain. She declined morning miralax due to this pain. Encouraged her to take daily
bowel regimen in addition to the magnesium she was taking at home and retry miralax later this morning after breakfast. Pt is hungry and looking forward to advancing diet.
#constipation
#hemorrhoidal pain
- Continue to encourage daily miralax
- Advance diet as tolerated
- Able to discharge from GI perspective if diet is tolerated
Subjective
Subjective
Date of Service: September 26, 2025
Pt reports feeling better today. She denies abdominal pain, nausea, or vomiting. She reports having multiple large, liquid BM overnight. However, she describes she does not feel fully empty. She describes painful hemorrhoids and declined her morning
miralax. We discussed the importance of miralax or alternative bowel regimen in addition to her magnesium she takes to ensure she does not experience further constipation once again.
Objective
Data Reviewed
Laboratory Data:
Laboratory Results
09/26/25 07:43
09/26/25 07:43
Laboratory Results
Total Bilirubin 0.7 mg/dl (0.2-1.3) 09/26/25 07:43
AST 36 U/L (14-36) 09/26/25 07:43
ALT 18 U/L (0-35) 09/26/25 07:43
Alkaline Phosphatase 56 U/L (38-126) 09/26/25 07:43
Lipase 148 U/L (23-300) 09/25/25 08:59
Vital Signs and I&O:
Vital Signs
Temp Pulse Resp BP Pulse Ox
98.4 F 67 18 138/66 100
09/26/25 07:00 09/26/25 07:00 09/26/25 07:00 09/26/25 07:00 09/26/25 07:00
I&O
09/25/25 09/26/25 09/27/25
06:59 06:59 06:59
Intake Total 620 / 620
Output Total 300 / 300
Balance 320 / 320
Physical Exam
Physical Exam
HEENT: Anicteric and Moist mucous membranes
Cardiology: Normal Sinus Rhythm
Pulmonary: Other (nonlabored breathing)
GI: Soft, Non Distended and Non Tender
Extremities: No Edema
Neuro: Non Focal
--- NOTE | 2025-09-26 14:01 | W.DCSUMMARY ---
Discharge Summary
Discharge Data
Date of Admission: 09/25/25
Date of Discharge: 09/26/25
-
Pending Results: No
Hospital Course
Discharging Physician : Dr. Doc Sharma, Dr. Amish Alan
Disposition : Home
Primary care physician : Dr. Ira Joshi
Principal Discharge diagnosis : Acute enterocolitis
Chronic Discharge diagnosis : Hyponatremia, essential hypertension, gastroesophageal reflux disease/erosive gastritis, hyperlipidemia, hypothyroidism
Hospital Course : 85-year-old female complaining of abdominal pain that started last Wednesday that has been off and on with some slight nausea. She does report her last bowel movement was on this past Wednesday. She has been following a liquid diet. She
was seen in the ER yesterday with CT showing diverticulitis. She was placed on oral Augmentin and was discharged as she preferred to go home at that time. She reports that she started magnesium of unknown type and that she has been taking 1
capsule twice daily for the past 6 to 8 weeks, however over the past 10 days she increased the magnesium to 1 capsule 3 times a day. She is unsure if it is magnesium citrate, glycan or oxide. She reports that she was taking this due to feeling
constipated. She said her bowel movements vary every 1 to 2 days. She noticed a slight bo color over the weekend. She denies vomiting, fever, chills, chest pain, palpitation, cough, shortness of breath, diarrhea, urinary symptoms. Patient was
readmitted and monitored overnight. Stool culture and fecal calprotectin were ordered to narrow down any infectious or inflammatory processes occurring within the GI tract. Her PPI was held due to the risk for C. difficile. Patient may have been
taking p.o. or magnesium citrate online or OTC, not aware of the citrate in it. GI was consulted and as per their recommendation, patient was started on a magnesium citrate 10 ounce cleanse and moving forward was put on a daily dose of MiraLAX. GI
advised for her to continue with her PPI. They anticipate advancement after patient's bowel cleanse. This morning patient had a bowel movement episode. Was daughter is on Zosyn we can discharge her on Augmentin p.o. twice daily and her regular
home medications. As per GIs advice they recommend magnesium citrate followed by MiraLAX daily. Patient's hyponatremia has improved her hypertension was controlled through Cardizem. Calcium carbonate and PPIs protect against GERD/erosive
gastritis. Patient can continue her statin ajd levothyroxine for hyperlipidemia and hypothyroidism respectively. Patient's abdominal pain completely resolved after magnesium citrate cleanse. She denies any constitutional symptoms, and is
tolerating liquids and her labs/vitals are stable. Patient recommended to resume MiraLAX daily, advance to low residue diet and is medically cleared for hospital discharge today with follow-up with Dr. Cook in GI office on 10/05/2025.
Important imaging findings :
CT A/P: The cecum appears located within the right upper quadrant which is likely secondary to a mobile cecum. There is persistent wall thickening involving the distal ileum, cecum and proximal ascending colon which is likely secondary to
enterocolitis. There is a mildly prominent loops of small bowel which may be secondary to delayed transit. The appendix extends adjacent to the medial right hepatic lobe and appears nondistended. Mild wall thickening along the distal esophagus
suggestive of esophagitis. Persistent apparent mild wall thickening within the rectum suggestive of persistent mild proctitis.
Procedure findings :
Discharge Plan
-
Patient Disposition: Home (Routine Discharge)
Discharge Diagnosis/Procedures: Acute enterocolitis, hyponatremia, essential hypertension, gastroesophageal reflux disease/erosive gastritis, hyperlipidemia, hypothyroidism
Condition: Good
Diet: Low Residue
Additional Diets: Advance diet when comfortable to do so.
Activity: As tolerated
Driving Restrictions: As prior to admission
Bathing Restrictions: None
Blood Work: Follow-up with Dr. Liliana Cook in GI office on 10/05/2025
Specialty Instructions: Weigh Daily- Call MD for wt gain/loss 3 lbs overnight/5 lbs in 1 week
Referrals:
Nighat Cook MD [Active, Gastroenterology] - in one to two weeks
Referral Note: Follow-up in GI office on 10/05
Ira Joshi MD [Family Provider, [facility]]
Prescriptions:
Continued
calcium carbonate [Calcium 600] 600 MG tablet
2,400 mg PO DAILY
diltiazem HCl 120 MG capsule,extended release 24hr
120 mg PO DAILY
atorvastatin [Lipitor] 10 mg Tablet
5 mg PO DAILY
therapeutic multivitamin Tablet
1 tab PO DAILY
levothyroxine [Synthroid] 25 mcg Tablet
25 mcg PO DAILY
eszopiclone [Lunesta] 2 mg Tablet
1 mg PO HS
magnesium oxide 200 mg magnesium Tablet
200 mg PO TID
[place] Tail Mushroom
1 cap PO DAILY
amoxicillin-pot clavulanate 875-125 mg tablet
1 tab PO BID Qty: 12 0RF
Rx Instructions:
for 10 days starting 09/23/25
Discharge Orders:
Discharge Patient (As Directed); Ordered 09/26/25
Ordered By: Amish Alan
Discharge Date and Time
Discharge Date/Time: 09/26/25 15:24
Print Language: CHINESE
[2025-09-26 14:04] VITALS: BP 153/73
--- NOTE | 2025-09-26 16:01 | W.PN.HOSP.TC ---
Today's Communication/Plan
-
ADAT
Add Augmentin to discharge meds
Advised to take Mg Citrate followed by Miralax daily.
Discharge patient.
Assessment / Plan
Assessment / Plan
Impression:
85-year-old female with PMHx of diverticulitis, erosive gastritis, GERD, HLD, migraines, sciatica, chronic back pain and PE complaining of abdominal pain that started on Wednesday 4 days ago that has been off and on with some slight nausea. She does
report last bowel movement was on Wednesday 2 days ago. She has been following a liquid diet. She was seen in the ER yesterday with CT showing diverticulitis. She was placed on oral Augmentin as she preferred to go home at that time. She reports
she started magnesium unknown type capsule she has been taking 1 capsule twice daily for the past 6 to 8 weeks however over the past 10 days she increased the magnesium to 1 capsule 3 times a day. She is unsure if it is magnesium citrate, glycan 8
or oxide. She reports she was taking this due to feeling constipated. She said her bowel movements vary every 1 to 2 days. She noticed a slight bo color on Wednesday or Wednesday. She denies vomiting, fever, chills, chest pain, palpitations,
cough, shortness of breath, diarrhea, urinary symptoms.
Plan:
#Acute enterocolitis
Visualized via CTA/P
On Zosyn in hospital, will be discharged on Augmentin
ADAT
As per GI. recommend Mg Citrate followed by Miralax daily.
#Mild hyponatremia hypovolemic
Improved
#HTN
Continue diltiazem 120 mg daily
#Erosive gastritis
#GERD
Continue calcium carbonate 24 mg daily.
Start PPI
#HLD
Continue Lipitor 5 mg daily
#Hypothyroidism
Continue Synthroid 25 mcg p.o. daily
DVT prophylaxis
Subcu Lovenox
Anticipated Discharge: Today
Subjective/Interval History
-
Date of Service: September 26, 2025
There were no acute overnight events recorded for this patient.
Objective Data
-
Labs:
Laboratory Results
09/26/25
07:43
WBC 3.6 L
Hgb 13.1
Hct 38.7
Plt Count 175
Sodium 134 L
Potassium 4.0
Chloride 103
Carbon Dioxide 24
BUN 10
Creatinine 0.7
Glucose 72
Calcium 9.3
Total Bilirubin 0.7
AST 36
ALT 18
Alkaline Phosphatase 56
Vital Signs:
Vital Signs
Temp Pulse Resp BP Pulse Ox
97.5 F 75 16 153/73 98
09/26/25 14:04 09/26/25 14:04 09/26/25 14:04 09/26/25 14:04 09/26/25 14:04
I&O
09/25/25 09/26/25 09/27/25
06:59 06:59 06:59
Intake Total 620 / 620
Output Total 300 / 300
Balance 320 / 320
CT A/P: The cecum appears located within the right upper quadrant which is likely secondary to a mobile cecum. There is persistent wall thickening involving the distal ileum, cecum and proximal ascending colon which is likely secondary to
enterocolitis. There is a mildly prominent loops of small bowel which may be secondary to delayed transit. The appendix extends adjacent to the medial right hepatic lobe and appears nondistended. Mild wall thickening along the distal esophagus
suggestive of esophagitis. Persistent apparent mild wall thickening within the rectum suggestive of persistent mild proctitis.
Review of Systems
-
History Source: Patient and Records
All other systems: Reviewed and negative
Physical Exam
-
General: No Apparent Distress
HEENT: Normocephalic and Atraumatic
Respiratory: Clear to Auscultation
Cardiac: Negative S1/S2
Breast: Deferred by me
GI: Soft, Nontender, Nondistended and Normal Bowel Sounds
Musculoskeletal: No Clubbing, No Cyanosis and No Edema
Skin: Negative Rash
Neuro: AO x 3 and Nonfocal/Grossly Intact
Data Reviewed
-
CT Scan: Report Reviewed by me and Discussed with Physician
Labs: Labs Reviewed by me and Discussed with Physician
--- NOTE | 2025-09-27 10:00 | PN.CDI ---
CDI
- -
CDI:
Physician Documentation Request
Admit Date: 09/25/25 13:22
Dear Doctor Dayanna,
Patient found to have acute enterocolitis.
Patient was on Zosyn while hospitalized and discharged on Augmentin.
GI notes indicate 'Kaylyn's abd pain completely resolved after mag citrate cleanse'
Please provide additional specificity regarding the type of colitis:
Infectious -
Non-infectious -
Other - please specify
Use of terms such as suspected, likely, concern for, or probable (associated with a specific diagnosis that is being evaluated, monitored, or treated as if it exists) are acceptable and can be coded in the inpatient setting, when documented at the
time of discharge.
Thank you,
Kaity Lester RN, BSN
CDI Specialist
tiger text
Please use your independent medical judgment in providing your response.
--- NOTE | 2025-09-27 10:05 | PN.CDI ---
CDI
- -
CDI:
Physician Documentation Request
Admit Date: 09/25/25 13:22
Dear Doctor Dayanna,
Please review the following and provide your response in the progress notes.
Clinical Indicators:
Height: 4 ft 10 inches
Weight:83 lbs 9.6 oz
BMI: 17.5
Please provide an associated diagnosis related to the abnormal BMI, such as:
BMI < or = to 19
Underweight
Weight Loss
Cachectic
Anorexia
- BMI is not significant
- Other
Use of terms such as suspected, likely, concern for, or probable (associated with a specific diagnosis that is being evaluated, monitored, or treated as if it exists) are acceptable and can be coded in the inpatient setting, when documented at the
time of discharge.
Thank you,
Kaity Lester RN, BSN
CDI Specialist
tiger text
Please use your independent medical judgment in providing your response.
== END 2025-09-26 15:24 | disposition home or self-care (01) | DRG 392 ==
LOC: 4 WEST ACU 13:22
PROVIDERS: Clinical Nurse Specialist Family Health; Nurse Practitioner; ADMITTING PHYSICIAN Internal Medicine; ATTENDING PHYSICIAN Internal Medicine; CONSULT PHYSICIAN Internal Medicine Gastroenterology; EMERGENCY PHYSICIAN Emergency Medicine; FAMILY PHYSICIAN Family Medicine
DX: A09 Infectious gastroenteritis and colitis, unspecified (principal); E87.1 Hypo-osmolality and hyponatremia; Q43.3 Congenital malformations of intestinal fixation; R64 Cachexia; Z68.1 Body mass index [BMI] 19.9 or less, adult; K62.89 Other specified diseases of anus and rectum; E78.00 Pure hypercholesterolemia, unspecified; G43.909 Migraine, unspecified, not intractable, without status migrainosus; K21.9 Gastro-esophageal reflux disease without esophagitis; K29.60 Other gastritis without bleeding; E03.9 Hypothyroidism, unspecified; G47.00 Insomnia, unspecified; G89.29 Other chronic pain; I10 Essential (primary) hypertension; E86.1 Hypovolemia; K59.00 Constipation, unspecified; Z79.82 Long term (current) use of aspirin; Z79.52 Long term (current) use of systemic steroids; Z79.2 Long term (current) use of antibiotics; Z88.1 Allergy status to other antibiotic agents; Z88.5 Allergy status to narcotic agent; Z79.890 Hormone replacement therapy; Z79.899 Other long term (current) drug therapy; Z86.711 Personal history of pulmonary embolism; Z87.19 Personal history of other diseases of the digestive system; Z82.49 Family history of ischemic heart disease and other diseases of the circulatory system; Z86.19 Personal history of other infectious and parasitic diseases
CPT/HCPCS: 74177; 80053; 83690; 83993; 84443; 85025; 97162; 99284; Q9967

== ENCOUNTER → 2025-10-05 11:10 | Outpatient (REF) | payer MEDICARE, SELFPAY | LOC: RAD 11:10 | PROVIDERS: ATTENDING PHYSICIAN Internal Medicine Gastroenterology; FAMILY PHYSICIAN Family Medicine | DX: R19.4 Change in bowel habit (principal) | CPT/HCPCS: 74019 ==